=== PATIENT | female | born 1965 | race Caucasian/White ===

== ENCOUNTER 2018-06-25 12:13 | Inpatient (IN) ==
[2018-06-25] MEDS ORDERED: HYDROmorphone 2 MG/1 ML VIAL IV STA (13:07)
[2018-06-25] MEDS ORDERED: LEVOFLOXACIN INJ 750 MG in PREMIX 1 EACH IV STA (13:07)
[2018-06-25] MEDS ORDERED: ONDANSETRON 4 MG/2 ML VIAL IV STA (13:07)
[2018-06-25 15:13] LABS: Basophils # 0.1 10*3/uL (0.0-0.2); Basophils % 0.3 % (0.0-0.8); Eosinophils # 0.1 10*3/uL (0.0-0.87); Eosinophils % 0.4 % (0.00-10.9); Hematocrit 42.7 VOL% (35.7-47.0); Hemoglobin 14.3 GM/DL (12.0-16.0); Immature Granulocytes % 0.4 %; Immature Granulocytes Absolute 0.08 #; Lymphocytes # 1.9 10*3/uL (1.4-4.0); Lymphocytes % 9.4 % (21.3-54.2); Mean Corpuscular HGB Conc 33.5 GM/DL (32-36); Mean Corpuscular Hemoglobin 32 PG (27-34); Mean Corpuscular Volume 96.8 FL (87-102); Monocytes # 1.7 10*3/uL (0.11-0.8); Monocytes % 8.3 % (1.7-12.7); Neutrophils # 16.5 10*3/uL (1.4-7.4); Neutrophils % 81.2 % (38.7-73.9); Platelet Count 208 T/CUMM (130-400); Red Blood Count 4.41 MC/CUMM (3.8-5.5); Red Cell Distribution Width 11.9 % (9.3-17.3); White Blood Count 20.3 T/CUMM (4-12)
[2018-06-25 15:35] LABS: Alanine Aminotransferase 18 U/L (13-56); Albumin 3.2 G/DL (3.4-5.0); Alkaline Phosphatase 65 U/L (45-117); Aspartate Amino Transferase 14 U/L (0-37); Blood Urea Nitrogen 8 MG/DL (7-18); Glucose 94 MG/DL (74-106); Lactic Acid 2.1 MMOL/L (0.4-2.0); Osmolality,Calculated 274.5 MOS/KG (273-304); Potassium 3.7 MMOL/L (3.5-5.1); Sodium 139 MMOL/L (136-145); Total Protein 6.3 G/DL (6.4-8.3)
[2018-06-25 15:56] LABS: Apearance,Urine CLEAR (Clear); Bilirubin,Urine Negative (Negative); Blood, Urine Moderate mg/dL (Negative); Glucose,Urine (UA) Negative (Negative); Ketones,Urine 5 mg/dL (Negative); Nitrite,Urine Negative (Negative); Protein,Urine Negative; RBC,Urine 4 /HPF (0-4); Squamous Epithelial Cell,Urine Occasional /HPF (0-10); Urine Color Yellow (Yellow); Urine Specific Gravity 1.006 (1.001-1.035); Urine Urobilinogen < 2.0 EU/DL (0.2-1.0); WBC,Urine <1 /HPF (0-6)
[2018-06-25 16:25] LABS: Band Neutrophils 1 % (0-10); Lymphocytes 14 % (20-55); Platelet Estimate Normal; Segmented Neutrophils 77 % (50-85); Total Cells Counted 100
[2018-06-25] MEDS ORDERED: MAGNESIUM HYDROXIDE SUSP 30 ML UDCUP PO PRN (16:37)
[2018-06-25] MEDS ORDERED: HYDROmorphone 2 MG/1 ML VIAL IV PRN (16:37)
[2018-06-25] MEDS ORDERED: BISACODYL 10 MG SUPP RECTAL PRN (16:37)
[2018-06-25] MEDS ORDERED: ACETAMINOPHEN 325 MG TABLET PO PRN (16:37)
[2018-06-25] MEDS ORDERED: ONDANSETRON 4 MG/2 ML VIAL IV PRN (16:37)
[2018-06-25] MEDS: SODIUM CHLORIDE 0.9% 1,000 ML IV SCH (17:06)
[2018-06-25] MEDS: IBUPROFEN 800 MG TABLET PO PRN (17:30)
[2018-06-25] MEDS: DOCUSATE SODIUM 100 MG CAPSULE PO SCH (20:38)
[2018-06-26] MEDS: SODIUM CHLORIDE 0.9% 1,000 ML IV SCH ×2 (00:35→15:21)
[2018-06-26] MEDS: IBUPROFEN 800 MG TABLET PO PRN ×3 (00:35→17:03)
[2018-06-26 06:07] LABS: Basophils % 0.2 % (0.0-0.8); Eosinophils # 0.2 10*3/uL (0.0-0.87); Hemoglobin 12.5 GM/DL (12.0-16.0); Immature Granulocytes Absolute 0.15 #; Lymphocytes # 1.9 10*3/uL (1.4-4.0); Lymphocytes % 12.7 % (21.3-54.2); Mean Corpuscular HGB Conc 32.9 GM/DL (32-36); Mean Corpuscular Hemoglobin 32 PG (27-34); Mean Corpuscular Volume 98.2 FL (87-102); Mean Platelet Volume 10.5 FL (9.6-12.0); Monocytes # 1.2 10*3/uL (0.11-0.8); Monocytes % 7.8 % (1.7-12.7); Neutrophils # 11.5 10*3/uL (1.4-7.4); Neutrophils % 77.3 % (38.7-73.9); Platelet Count 162 T/CUMM (130-400); Red Blood Count 3.87 MC/CUMM (3.8-5.5); Red Cell Distribution Width 12.1 % (9.3-17.3); White Blood Count 14.9 T/CUMM (4-12)
[2018-06-26 06:46] LABS: Albumin 2.5 G/DL (3.4-5.0); Bilirubin,Total 0.6 MG/DL (0.2-1.0); Calcium 7.8 MG/DL (8.5-10.1); Osmolality,Calculated 285.7 MOS/KG (273-304); Potassium 3.9 MMOL/L (3.5-5.1); Total Protein 5.2 G/DL (6.4-8.3)
[2018-06-26] MEDS ORDERED: FAMOTIDINE 20 MG TABLET PO ONE (07:40)
[2018-06-26] MEDS ORDERED: DIAZEPAM 5 MG TABLET PO ONE (07:40)
[2018-06-26] MEDS: DOCUSATE SODIUM 100 MG CAPSULE PO SCH ×2 (08:48→20:06)
[2018-06-26] MEDS ORDERED: SCOPOLAMINE 1.5 MG PATCH TRANSDERM ONE (09:43)
[2018-06-26] MEDS ORDERED: DOCUSATE SODIUM 100 MG CAPSULE PO PRN (13:00)
[2018-06-26] MEDS ORDERED: ACETAMINOPHEN 325 MG TABLET PO PRN (13:00)
[2018-06-26] MEDS ORDERED: BISACODYL 10 MG SUPP RECTAL PRN (13:00)
[2018-06-26] MEDS ORDERED: MAGNESIUM HYDROXIDE SUSP 30 ML UDCUP PO PRN (13:00)
[2018-06-26] MEDS ORDERED: ONDANSETRON 4 MG/2 ML VIAL IV PRN ×2 (13:00→13:14)
[2018-06-26] MEDS ORDERED: BENZOCAINE/MENTHOL LOZENGE 18/BOX PO PRN (13:00)
[2018-06-26] MEDS ORDERED: IBUPROFEN 800 MG TABLET PO PRN (13:00)
[2018-06-26] MEDS ORDERED: SEVOFLURANE 1 UNIT/15 MINUTE INH ONE (13:06)
[2018-06-26] MEDS ORDERED: PROPOFOL 200 MG/20 ML VIAL IV ONE (13:06)
[2018-06-26] MEDS ORDERED: MIDAZOLAM 2 MG/2 ML VIAL ONE (13:06)
[2018-06-26] MEDS ORDERED: LIDOCAINE 1% 5 ML VIAL ONE (13:06)
[2018-06-26] MEDS ORDERED: fentaNYL 100 MCG/2 ML VIAL ONE (13:06)
[2018-06-26] MEDS ORDERED: HYDROmorphone 2 MG/1 ML VIAL IV PRN (13:14)
[2018-06-26] MEDS ORDERED: HYDROmorphone 2 MG/1 ML VIAL ONE (13:16)
[2018-06-26] MEDS ORDERED: ONDANSETRON 4 MG/2 ML VIAL ONE (13:16)
[2018-06-26] MEDS: LEVOFLOXACIN INJ 750 MG in PREMIX 1 EACH IV SCH (13:59)
[2018-06-26] MEDS: LACTATED RINGERS 1,000 ML IV SCH (15:11)
[2018-06-26] MEDS: LEVOFLOXACIN INJ 500 MG in PREMIX 1 EACH IV SCH (15:11)
[2018-06-27] MEDS: LACTATED RINGERS 1,000 ML IV SCH ×3 (02:03→17:45)
[2018-06-27 06:35] LABS: Basophils % 0.2 % (0.0-0.8); Eosinophils # 0.1 10*3/uL (0.0-0.87); Eosinophils % 0.7 % (0.00-10.9); Hemoglobin 11.7 GM/DL (12.0-16.0); Immature Granulocytes % 0.7 %; Immature Granulocytes Absolute 0.11 #; Lymphocytes # 1.3 10*3/uL (1.4-4.0); Lymphocytes % 7.5 % (21.3-54.2); Mean Corpuscular HGB Conc 33.4 GM/DL (32-36); Mean Corpuscular Hemoglobin 32 PG (27-34); Mean Corpuscular Volume 95.1 FL (87-102); Mean Platelet Volume 10.5 FL (9.6-12.0); Monocytes # 1.4 10*3/uL (0.11-0.8); Monocytes % 8.6 % (1.7-12.7); Neutrophils # 13.7 10*3/uL (1.4-7.4); Neutrophils % 82.3 % (38.7-73.9); Platelet Count 161 T/CUMM (130-400); Red Blood Count 3.68 MC/CUMM (3.8-5.5); Red Cell Distribution Width 11.9 % (9.3-17.3); White Blood Count 16.7 T/CUMM (4-12)
[2018-06-27] MEDS: IBUPROFEN 800 MG TABLET PO PRN ×2 (09:12→16:53)
[2018-06-27] MEDS: DOCUSATE SODIUM 100 MG CAPSULE PO SCH ×2 (09:13→21:03)
[2018-06-27] MEDS: LEVOFLOXACIN INJ 500 MG in PREMIX 1 EACH IV SCH (15:55)
[2018-06-27] MEDS: LEVOFLOXACIN INJ 750 MG in PREMIX 1 EACH IV SCH (17:11)
[2018-06-28] MEDS: LACTATED RINGERS 1,000 ML IV SCH ×4 (00:08→21:34)
[2018-06-28] MEDS: IBUPROFEN 800 MG TABLET PO PRN ×2 (07:39→21:32)
[2018-06-28] MEDS: DOCUSATE SODIUM 100 MG CAPSULE PO SCH ×2 (08:37→21:33)
[2018-06-28] MEDS: LEVOFLOXACIN INJ 750 MG in PREMIX 1 EACH IV SCH (12:17)
[2018-06-28] MEDS: SODIUM HYPOCHLORITE 0.25% IRRIG 473 ML BOTTLE TOP SCH (13:43)
[2018-06-28] MEDS: LEVOFLOXACIN INJ 500 MG in PREMIX 1 EACH IV SCH (14:01)
[2018-06-29] MEDS: LACTATED RINGERS 1,000 ML IV SCH ×3 (06:07→21:17)
[2018-06-29] MEDS: IBUPROFEN 800 MG TABLET PO PRN ×3 (07:47→23:29)
[2018-06-29] MEDS: DOCUSATE SODIUM 100 MG CAPSULE PO SCH ×2 (08:09→21:17)
[2018-06-29] MEDS: SODIUM HYPOCHLORITE 0.25% IRRIG 473 ML BOTTLE TOP SCH (08:10)
[2018-06-29] MEDS: LEVOFLOXACIN INJ 500 MG in PREMIX 1 EACH IV SCH (14:43)
[2018-06-29] MEDS: LINEZOLID 600 MG TABLET PO SCH (21:17)
[2018-06-30] MEDS: LACTATED RINGERS 1,000 ML IV SCH ×4 (05:11→18:15)
[2018-06-30] MEDS ORDERED: LIDOCAINE 1% 20 ML VIAL ONE (07:26)
[2018-06-30] MEDS ORDERED: BUPIVACAINE MPF 0.25% 30 ML VIAL ONE (07:26)
[2018-06-30] MEDS ORDERED: SCOPOLAMINE 1.5 MG PATCH TRANSDERM ONE ×2 (07:31→07:41)
[2018-06-30] MEDS: SODIUM HYPOCHLORITE 0.25% IRRIG 473 ML BOTTLE TOP SCH (08:17)
[2018-06-30] MEDS: DOCUSATE SODIUM 100 MG CAPSULE PO SCH ×2 (08:17→21:31)
[2018-06-30] MEDS ORDERED: ONDANSETRON 4 MG/2 ML VIAL IV PRN (09:09)
[2018-06-30] MEDS: HYDROmorphone 2 MG/1 ML VIAL IV PRN ×4 (09:13→09:32)
[2018-06-30] MEDS ORDERED: PROPOFOL 200 MG/20 ML VIAL IV ONE (09:17)
[2018-06-30] MEDS ORDERED: SEVOFLURANE 1 UNIT/15 MINUTE INH ONE (09:17)
[2018-06-30] MEDS ORDERED: ACETAMINOPHEN 1,000 MG/100 ML VIAL IV ONE (09:18)
[2018-06-30] MEDS ORDERED: MIDAZOLAM 2 MG/2 ML VIAL ONE (09:18)
[2018-06-30] MEDS ORDERED: KETOROLAC 30 MG/1 ML VIAL ONE (09:18)
[2018-06-30] MEDS ORDERED: fentaNYL 100 MCG/2 ML VIAL ONE (09:18)
[2018-06-30] MEDS: LINEZOLID 600 MG TABLET PO SCH (10:49)
[2018-06-30] MEDS ORDERED: diphenhydrAMINE 50 MG/1 ML VIAL IV PRN (10:50)
[2018-06-30] MEDS: cefTRIAXone 1,000 MG in SYRINGE 1 EACH IV SCH (11:47)
[2018-06-30] MEDS: IBUPROFEN 800 MG TABLET PO PRN (16:44)
[2018-07-01] MEDS: LACTATED RINGERS 1,000 ML IV SCH ×4 (00:08→19:35)
[2018-07-01 06:17] LABS: Basophils % 0.4 % (0.0-0.8); Eosinophils # 0.8 10*3/uL (0.0-0.87); Eosinophils % 6.9 % (0.00-10.9); Hematocrit 32.2 VOL% (35.7-47.0); Hemoglobin 10.5 GM/DL (12.0-16.0); Immature Granulocytes % 1.3 %; Immature Granulocytes Absolute 0.15 #; Lymphocytes # 2.1 10*3/uL (1.4-4.0); Lymphocytes % 18.7 % (21.3-54.2); Mean Corpuscular HGB Conc 32.6 GM/DL (32-36); Mean Corpuscular Hemoglobin 32 PG (27-34); Mean Corpuscular Volume 97.3 FL (87-102); Mean Platelet Volume 9.2 FL (9.6-12.0); Monocytes # 1.3 10*3/uL (0.11-0.8); Monocytes % 11.2 % (1.7-12.7); Neutrophils % 61.5 % (38.7-73.9); Platelet Count 234 T/CUMM (130-400); Red Blood Count 3.31 MC/CUMM (3.8-5.5); Red Cell Distribution Width 11.9 % (9.3-17.3); White Blood Count 11.4 T/CUMM (4-12)
[2018-07-01 06:44] LABS: Calcium 7.8 MG/DL (8.5-10.1); Potassium 3.5 MMOL/L (3.5-5.1)
[2018-07-01] MEDS: IBUPROFEN 800 MG TABLET PO PRN (09:44)
[2018-07-01] MEDS: DOCUSATE SODIUM 100 MG CAPSULE PO SCH ×2 (09:49→22:35)
[2018-07-01] MEDS: SODIUM HYPOCHLORITE 0.25% IRRIG 473 ML BOTTLE TOP SCH (11:19)
[2018-07-01] MEDS: cefTRIAXone 1,000 MG in SYRINGE 1 EACH IV SCH (11:44)
[2018-07-02] MEDS: LACTATED RINGERS 1,000 ML IV SCH ×3 (06:13→19:31)
[2018-07-02] MEDS: SODIUM HYPOCHLORITE 0.25% IRRIG 473 ML BOTTLE TOP SCH (09:12)
[2018-07-02] MEDS: DOCUSATE SODIUM 100 MG CAPSULE PO SCH ×2 (09:32→21:24)
[2018-07-02] MEDS ORDERED: CEFUROXIME 500 MG TABLET PO SCH (15:00)
[2018-07-02] MEDS: cefTRIAXone 1,000 MG in SYRINGE 1 EACH IV SCH (15:28)
[2018-07-03] MEDS ORDERED: CEFUROXIME 500 MG TABLET PO SCH (04:00)
[2018-07-03] MEDS: LACTATED RINGERS 1,000 ML IV SCH (05:04)
[2018-07-03] MEDS: DOCUSATE SODIUM 100 MG CAPSULE PO SCH (08:25)
[2018-07-03 12:09] VITALS: BP 118/62
== END 2018-07-03 14:20 | disposition home or self-care (01) | DRG 746 ==
LOC: N.ED 12:13 → N.EDINP 13:11 → N.3E 16:22
PROVIDERS: ADMIT Obstetrics & Gynecology; ATTEND Obstetrics & Gynecology